=== PATIENT | female | born 1975 | race Two or more races ===

== ENCOUNTER → 2016-08-10 | Emergency (ER) | payer BC ==
[~2016-08-10] VITALS: Ht 167.6 cm; Wt 86.2 kg
[~2016-08-10] MED LIST: IBUPROFEN600 MG ORAL; LORazepam 1mg tab ORAL ONE; XANAX0.25 MG ORAL
[2016-08-10 23:22] VITALS: BP 156/91
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
[2016-08-11] VITALS: BP 150/89
--- NOTE | 2016-08-11 12:20 | Diagnostic Imaging Report ---
Indication: Neck Pain Findings: 3 views of the cervical spine were obtained. There is no acute fracture identified. Alignment is normal. The open-mouth odontoid view is limited. No obvious abnormalities on this view. There is no soft tissue swelling. Impression: Negative cervical spine examination.
== END | disposition home or self-care (01) ==
LOC: EDBD 23:20 → EMR 23:29
DX: S16.1XXA Strain of muscle, fascia and tendon at neck level, initial encounter (principal); I10 Essential (primary) hypertension; V43.52XA Car driver injured in collision with other type car in traffic accident, initial encounter; Y92.89 Other specified places as the place of occurrence of the external cause; Y99.8 Other external cause status
CPT/HCPCS: 72052; 99283